=== PATIENT | male | born 1970 ===

== ENCOUNTER → 2019-07-15 | Outpatient (CLI) | payer OTHER ==
[~2019-07-15] MED LIST: ALTACE10 MG; ALTACE10 MG PO; AMOX1TAB12 PO; BUCALSEP SPRAY30 ML MM
== END | disposition home or self-care (01) ==
LOC: RAD 08:59
DX: R06.09 Other forms of dyspnea (principal); I10 Essential (primary) hypertension

== ENCOUNTER → 2019-07-18 | Outpatient (CLI) | payer OTHER | END | disposition home or self-care (01) | LOC: NUCLEAR 11:30 | DX: R06.00 Dyspnea, unspecified (principal); I10 Essential (primary) hypertension ==

== ENCOUNTER 2023-11-27 11:43 | Outpatient (CLI) | payer OTHER | END 2023-11-27 11:52 | disposition home or self-care (01) | LOC: RAD 11:43 | PROVIDERS: ATTEND Internal Medicine Pulmonary Disease | DX: R05.9 Cough, unspecified (principal); J01.90 Acute sinusitis, unspecified ==